=== PATIENT | male | born 1985 | race African-American/Black ===

== ENCOUNTER 2024-01-28 06:29 | Observation (INO) | payer OTHER, SELFPAY ==
[2024-01-28] VITALS (21 sets, daily range): BP systolic 136–180; BP diastolic 71–113; PULSE 75–124; RESP 14–20; TEMP 35.9–37; O2SAT 97–100; BMI 33.5
--- NOTE | 2024-01-28 | ECHO_ITS ---
Patient Info Name: Yamileth Gibson Age: 38 years : 1985 Gender: Male Ht: 72 in Wt: 230 lbs BSA: 2.33 m2 HR: 80 bpm BP: 146 / 83 mmHg Heart Rhythm: Sinus Rhythm Technical Quality: Fair Exam Date: 01/28/2024 10:18 AM Exam Location: Echo Lab Patient Status: Inpatient Admit Date: 01/28/2024 Staff Ordering Physician: Monica Davis MD Crane Operator Cab: Chasity Mays RDCS Attending Provider: Monica Davis MD Exam Type: CA echo dop color flow w con Study Info Indications R07.9 - Chest pain, unspecified Complete two-dimensional, color flow and Doppler transthoracic echocardiogram is performed with contrast to opacify the left ventricle and to improve the deliniation of the left ventricle endocardial borders. Contrast/Agitated Saline Contrast/Ag. Saline: Definity Amount: 2.00 ml Administered By: Chasity Mays RDCS Existing IV Access: Yes IV Access Condition: patent with no signs of infiltration Summary 1. Left ventricular chamber dimension is normal. 2. Left ventricular systolic function is normal, estimated at >70%. 3. There is mildly increased left ventricular wall thickness. 4. The left ventricular diastolic function is grade I diastolic dysfunction. 5. Right ventricular systolic function is normal. 6. There is mild tricuspid valve regurgitation. Left Ventricle Left ventricular chamber dimension is normal. Left ventricular systolic function is normal, estimated at >70%. There is mildly increased left ventricular wall thickness. The left ventricular diastolic function is grade I diastolic dysfunction. Right Ventricle Right ventricular chamber dimension is normal. Right ventricular systolic function is normal. Left Atria Left atrial chamber dimension is normal. Right Atria Right atrial chamber dimension is normal. Atrial Septum Intact interatrial septum visualized by color flow imaging. Aortic Valve The aortic valve is probable trileaflet. There is no aortic valve stenosis. There is no aortic valve regurgitation. There is mild aortic valve calcification. Pulmonic Valve The pulmonic valve is not well visualized. Mitral Valve The mitral valve has normal leaflets. There is trace mitral valve regurgitation. Tricuspid Valve There is mild tricuspid valve regurgitation. Pericardium/Pleural There is no pericardial effusion. Inferior Vena Cava Normal inferior vena cava with >50% collapse upon inspiration consistent with normal right atrial pressure, 3 mmHg. Aorta The aortic root size at the sinus of Valsalva is normal. Left Ventricular Outflow Tract Name Value Normal LVOT 2D LVOT Diameter 1.97 cm LVOT Doppler LVOT Peak Gradient 4 mmHg LVOT Mean Gradient 2 mmHg LVOT VTI 18.55 cm LVOT VTI/AV VTI Ratio 0.75 LVOT Stroke Volume 56.29 ml LVOT CO 5.08 l/min LVOT CI 2.18 L/min/m2 Pulmonic Valve Name Value Normal
--- NOTE | ~2024-01-28 | XR_ITS ---
Portable chest x-ray Comparison: None Clinical History: Chest pain Findings: Lungs are clear, without focal consolidation or pleural effusion. Cardiomediastinal silho uette is unremarkable. Bones and soft tissues are unremarkable. Impression: Normal chest. Reviewed, dictated and finalized at location . Impression: Normal chest.
--- NOTE | 2024-01-28 06:31 | ECG_ITS ---
Test Date: 2024-01-28 06:37:52 Measurements Intervals [place] Rate: 83 P: 3 MS: 157 QRS: 20 QRSD: 84 T: 22 QT: 340 QTc: 401 Interpretive Statements SINUS RHYTHM INCOMPLETE RIGHT BUNDLE BRANCH BLOCK SEPTAL MYOCARDIAL INFARCTION , OF INDETERMINATE AGE [40+ ms Q WAVE IN V1/V2] No previous ECG available for comparison Electronically Signed On 01-28-2024 11:38:34 CDT by Robbin Negro M.D.
[2024-01-28] MEDS: MORPHINE SULFATE (*CRX) 4 MG/ML INJ IV PUSH (06:42)
[2024-01-28] MEDS: NITROGLYCERIN SL 0.4 MG TABLET SUBLINGUAL (06:43)
[2024-01-28] MEDS: ONDANSETRON INJ 4 MG/2 ML VIAL IV PUSH ×2 (06:45→08:37)
[2024-01-28 06:48] LABS: Basophils Percent Auto 0.4 % (0.2-1.2); Eosinophils Absolute Auto 0.2 K/mm3 (0-0.3); Eosinophils Percent Auto 1.5 % (0-4.4); Hematocrit 43.5 % (42.0-52.0); Hemoglobin 13.5 g/dL (14.0-18.0); Immature Granulocyte Absolute 0.02 K/mm3 (0.00-0.031); Immature Granulocyte Percent A 0.2 % (0-0.5); Lymphocytes Absolute Auto 4.92 K/mm3 (0.9-3.2); Lymphocytes Percent Auto 48.4 % (18.3-44.2); Mean Corpuscular Hemoglobin 23.2 pg (26-34); Mean Corpuscular Volume 74.9 fl (80-100); Mean Platelet Volume 9.4 fl (7.4-10.4); Monocytes Percent Auto 9.7 % (2.6-8.5); Neutrophils Absolute Auto 4.1 K/mm3 (1.3-6.7); Neutrophils Percent Auto 39.8 % (45.5-73.1); Platelet Count Result 306 k/mm3 (150-375); Red Blood Count 5.81 M/mm3 (4.6-6.20); Red Cell Distribution Width 16.3 % (11.5-14.5); White Blood Count 10.2 K/mm3 (4.5-10.0)
--- NOTE | 2024-01-28 06:50 | ED.CHESTPAIN ---
HPI - Chest Pain General Chief Complaint: Chest Pain <Mele Griffin MD - Last Filed: 01/28/24 06:56> Stated Complaint: chest pain <Mele Griffin MD - Last Filed: 01/28/24 06:56> Time Seen by Provider: 01/28/24 06:55 <Mele Griffin MD - Last Filed: 01/28/24 06:56> History of Present Illness HPI narrative: This is a 38-year-old male, with history femoral endarterectomy, who presents to the emergency department complaining chest pain. The patient states he was sleeping, when he was woken by severe left-sided pressure-like chest pain. He denies radiation of the pain. This is associated with cold sweats and nausea. He has no other complaints at this time. <Mele Griffin MD - Last Filed: 01/28/24 06:56> Related Data Home Medications: Home Medications Medication Instructions Recorded Confirmed No Home Medications 01/28/24 01/28/24 <Mele Griffin MD - Last Filed: 01/28/24 06:56> Allergies/Adverse Reactions: Allergies Allergy/AdvReac Type Severity Reaction Status Date / Time gabapentin Allergy Unknown Verified 01/28/24 06:32 <Mele Griffin MD - Last Filed: 01/28/24 06:56> Review of Systems Review of Systems: All systems reviewed & are unremarkable except as noted in HPI and below <Mele Griffin MD - Last Filed: 01/28/24 06:56> [facility] Past Medical History Medical History: Medical History (Updated 01/28/24 @ 08:12 by Wing Navarro MD) History of OR (myocardial infarction) Inguinal hernia <Mele Griffin MD - Last Filed: 01/28/24 06:56> Surgical History Surgical History: Surgical History (Updated 01/28/24 @ 07:33 by Wing Navarro MD) History of endarterectomy Right common femoral due to mesh complication History of inguinal hernia repair <Mele Griffin MD - Last Filed: 01/28/24 06:56> Social History Social History: Social History Smoking status: Current every day smoker Alcohol intake: never Substance use: current Substance use type: marijuana <Mele Griffin MD - Last Filed: 01/28/24 06:56> Exam Narrative: GENERAL: Well-developed, well-nourished, diaphoretic, in moderate distress due to pain HEAD: Normocephalic, atraumatic. EYES: PERRLA and EOMI. CHEST: Clear to auscultation. No respiratory distress. No wheezes rales or rhonchi HEART: Regular rate and rhythm. No murmur heard. Normal peripheral pulses. ABDOMEN: Soft, nontender, nondistended, normal active bowel sounds. EXTREMITIES: Normal range of motion. No edema. SKIN: Warm, dry, no rash. NEURO: Alert and oriented x3. No focal deficit. Moving all 4 limbs spontaneously PSYCH: Normal mood and affect. <Mele Griffin MD - Last Filed: 01/28/24 06:56> Course Course Emergency Course: 07:00 - Patient signed out to oncoming ED physician, Dr. Navarro pending labs. I anticipate admission. <Mele Griffin MD - Last Filed: 01/28/24 06:56> 07:00 - Patient signed out to oncoming ED physician, Dr. Navarro pending labs. I anticipate admission. 0814: Patient reporting persistent 9/10 chest pain just left of midline. Reports radiates the neck. There has been no improvement with nitro, morphine, Toradol, GI cocktail. Will plan admission for observation and trending of the troponin. <Wing Navarro MD - Last Filed: 01/28/24 08:30> Vital Signs Vital signs: Vital Signs Temperature 98.4 F 01/28/24 06:32 Pulse Rate 92 01/28/24 06:32 Respiratory Rate 20 01/28/24 06:32 Blood Pressure 180/113 H 01/28/24 06:32 Pulse Oximetry 100 01/28/24 06:32 Oxygen Delivery Room Air 01/28/24 06:32 Temperature 98.6 F 01/28/24 08:09 Pulse Rate 80 01/28/24 08:09 Respiratory Rate 15 01/28/24 08:09 Blood Pressure 146/83 H 01/28/24 08:09 Pulse Oximetry 100 01/28/24 08:09 Oxygen Delivery Room Air 01/28/24 06:47 <Mele Harmon
--- NOTE | 2024-01-28 06:57 | PC.NURSE ---
At 0643 1st nitro given SL; BP 176/114 and CP 10/10. RA 100% and 16 RR. 92 bpm SR At 0648 2nd nitro given: BP 156/109 and CP 8/10. RA 100% and 16 RR. 96 bpm SR. At 0653 BP 144/98 and CP 8/10. RA 100% and 14 RR. [address] SR. Per EDP Dr. Griffin give third nitro. At 0655 third nitro given. At 0700 BP 141/101 and CP 7/10. RA 100% and 14 RR. 97 bmp SR
[2024-01-28 06:58] LABS: Alanine Aminotransferase 58 U/L (6-50); Albumin Level 4.8 g/dL (3.5-5.1); Alkaline Phosphatase 103 U/L (38-126); Anion Gap 9 mmol/L (4-12); Aspartate Amino Transferase 49 U/L (17-59); Bilirubin,Total 0.4 mg/dL (0.2-1.3); Blood Urea Nitrogen 9 mg/dL (9-20); Calcium 9.5 mg/dL (8.4-10.2); Carbon Dioxide 29 mmol/L (22-30); Chloride 99 mmol/L (98-107); Estimated CRCL calculation 135 ml/min; Estimated Glomerular Filt Rate > 60; Glucose 274 mg/dL (65-110); Lipase 187 U/L (23-300); Potassium 3.7 mmol/L (3.4-5.0); Sodium 137 mmol/L (137-145)
[2024-01-28 06:59] LABS: Partial Thromboplastin Time 28.4 Seconds (22.3-36.8); Prothrombin Time 13.1 Seconds (11.1-14.7)
[2024-01-28 07:10] LABS: Troponin I < 0.012 ng/mL (0.000-0.034)
--- NOTE | 2024-01-28 07:15 | PC.NURSE ---
Assumed care of pt, pt is alert on stretcher, discussed POC, pt on tele monitor w/ VSS. at bedside. NAD noted at this time.
[2024-01-28] MEDS: BELLADONNA ALK/PHENOB ELIX 10 ML, MAG HYDROX/ALUMINUM HYD/SIMETH 30 ML, LIDOCAINE HCL 2... PO (07:39)
[2024-01-28] MEDS: KETOROLAC 30 MG/ML VIAL (*BKC) IV PUSH (07:40)
[2024-01-28] MEDS: MORPHINE SULFATE (*CRX) 2 MG/ML INJ 1 MG IV PUSH ×4 (08:37→20:16)
[2024-01-28 08:58] LABS: Cholesterol 270 mg/dL (0-200); HDL Direct 29 mg/dL; Triglycerides 116 mg/dL (<150)
[2024-01-28 09:08] LABS: LDL Cholesterol Direct 208 mg/dL
[2024-01-28 09:15] LABS: Glucose Point of Care 279 mg/dl (65-105)
[2024-01-28 09:20] LABS: Hemoglobin A1C 7.9 % (<5.7)
[2024-01-28] MEDS: INSULIN ASPART (*BKC) 100 UNITS/ML SUB-Q ×6 (09:22→20:14)
[2024-01-28] MEDS: METOPROLOL TARTRATE 12.5 MG TABLET PO ×2 (09:23→20:13)
[2024-01-28] MEDS: ATORVASTATIN 40 MG TABLET PO (09:24)
[2024-01-28 10:19] LABS: Thyroid Stimulating Hormone 0.533 uIU/mL (0.465-4.680)
[2024-01-28] MEDS: PERFLUTREN LIPID MICROSPHERES 1.5 ML VIAL DILUTED TO 10 ML TOTAL VOLUME IV PUSH (10:50)
--- NOTE | 2024-01-28 11:04 | PM.CNCAR ---
Assessment and Plan Assessment and plan (1) NSTEMI (non-ST elevated myocardial infarction): Code(s): I21.4 - Non-ST elevation (NSTEMI) myocardial infarction Status: Acute Assessment and Plan: Initial troponin negative, however, subsequent level positive at 0.080. With substernal chest pain concerning for myocardial ischemia. Therefore, recommended cardiac catheterization. Discussed indication for the procedure with the patient, procedure details, risks vs benefits, alternative management options. Patient states he wants some time to think about his decision whether to undergo any procedures/surgeries (due to past issues he has distrust in the medical system). In the meantime, will treat medically with Heparin drip, ASA, high intensity statin, beta stacie. (2) Diabetes: Code(s): E11.9 - Type 2 diabetes mellitus without complications Status: Acute Assessment and Plan: Hgb A1c is 7.9. Patient denies any prior diagnosis of diabetes, therefore, this is a new diagnosis for the patient. Management as per primary team. (3) Hyperlipidemia: Code(s): E78.5 - Hyperlipidemia, unspecified Status: Acute Assessment and Plan: LDL is 208. Will start high intensity statin. (4) History of endarterectomy: Code(s): Z98.890 - Other specified postprocedural states Status: Acute Assessment and Plan: Continue ASA, starting high intensity statin. (5) Tobacco dependence: Code(s): F17.200 - Nicotine dependence, unspecified, uncomplicated Status: Acute Assessment and Plan: Recommend cessation. (6) Marijuana use: Code(s): F12.90 - Cannabis use, unspecified, uncomplicated Status: Acute Assessment and Plan: Recommend cessation. Plan Recommendations and plan discussed with Hospitalist. History of Present Illness History of Present Illness Consult date/time: 01/28/24 11:04 Requesting physician: Wing Navarro MD Consult reason: chest pain Reason For Visit: chest pain Narrative: This is a 38 year old male who presented to [facility] for chest pain. Patient reports that he was awoken around 4AM with substernal chest pain associated with cold sweats and nausea. Patient reports that he had an MT in 2021 in [place], however, he did not undergo any procedures (i.e. cardiac catheterization) at that time. Patient reports history of femoral endarterectomy due to complications from inguinal hernia surgery. Smokes <0.5 packs of cigarettes daily. Occasional marijuana use. No alcohol use. Was given Morphine and Toradol in the ER with improvement in his chest pain. EKG shows sinus rhythm, incomplete right bundle branch block. No prior EKG available for comparison. Initial troponin negative, however, repeat at level positive at 0.080. 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 History of inguinal hernia repair Social History Social History Smoking status: Current every day smoker Alcohol intake: never Substance use: current Substance use type: marijuana Meds Home Medications and Allergies Home Medications Medication Instructions Recorded Confirmed Type No Home Medications 01/28/24 01/28/24 History Allergies Allergy/AdvReac Type Severity Reaction Status Date / Time gabapentin Allergy Unknown Verified 01/28/24 06:32 Vital Signs Vital Signs - 24 hr 01/28/24 06:32 01/28/24 06:38 01/28/24 06:46 Temperature 36.9 C Pulse Rate 92 93 Respiratory Rate 20 Blood Pressure 180/113
--- NOTE | 2024-01-28 11:06 | IVDEFINITY ---
Prior to administration of IV Definity the patient was educated on the risks and benefits of the imaging enhancing agent including potential adverse side effects. The patient verbalized understanding. Allergies were verified. No exclusion criteria were identified and at least one of the following inclusion criteria were met: 1) physician request, 2) patient technically difficult to image (per the [place] [employer] guidelines of two or more segments not discernable within the apical view), or 3) questionable left ventricular function. ?
[2024-01-28] MEDS: HEPARIN SODIUM 5,000 UNITS/ML VIAL 4000 UNITS IV PUSH ×2 (11:29→18:55)
[2024-01-28] MEDS: HEPARIN SOD/D5W 100 UNITS/ML 25,000 UNITS/250 ML BAG 10 UNITS IV CONT (11:29)
[2024-01-28] MEDS: lisinopriL 2.5 MG TABLET PO (11:30)
--- NOTE | 2024-01-28 11:50 | ADMGEN ---
This patient, Yamileth Gibson, was admitted to IMU Room 232-01. Patient/family oriented to hospital policies and general routines including ID bracelet, bed and alarms, visiting hours, pain management, procedures, bathroom and other care routines, personal items, smoking policy, room service/diet, and visiting hours. Information on how to activate the Rapid Response Team has been discussed. Patient/Family are encouraged to report perceived risks to care and to ask questions if they do not understand what they are told or what they should do.
[2024-01-28 11:59] LABS: Glucose Point of Care 290 mg/dl (65-105)
[2024-01-28 13:05] LABS: Troponin I 0.316 ng/mL (0.000-0.034)
--- NOTE | 2024-01-28 13:30 | PC.NURSE ---
Patient removed playground monitor. Reviewed reason for monitoring system. Patient states he does not need it.
--- NOTE | 2024-01-28 13:30 | PC.NURSE ---
Dr. Davis to bedside. Patient states he will be leaving today.. Request to speak to Dr. Negro.
--- NOTE | 2024-01-28 13:36 | PM.IMHP ---
H&P: HPI History of Present Illness Date/Time: 01/28/24 13:36 Chief Complaint: Chest pain Narrative: 38-year-old male with past medical history of smoking, possible heart attack few years ago, left the hospital without being treated presented to the ER with chest pain. According to patient he started having chest pain around 4:00 a.m. in the morning, which woke him up from sleep, midsternal pressure-like symptoms, radiating to his right arm, with possible diaphoresis. He is a smoker, smokes 1 pack of cigarette per day. Patient denies any fever, chills. Endorses having associated shortness of breath. Denies any leg swelling. Initial troponin was unremarkable. Patient does not take any medications at home. 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 History of inguinal hernia repair Social History Social History Smoking packs per day: 0.5 Smoking cigarettes per day: 10.0 Years smoked: 7 Smoking pack-years: 3.50 Smoking status: Current every day smoker Tobacco type: cigarettes Alcohol intake: former Substance use: current Substance use type: marijuana Last use: 01/27/24 Do You Feel Safe in your Home?: Yes Lack of Transportation: No Lack of Food: Sometimes True Current Housing: I Have Housing Concerned About Future Housing: No Difficulty Paying Gas/Electric Bills: YES Difficulty Paying for Meds: YES Currently Unemployed: YES Education: High School Diploma/GED Difficulty w/ Childcare or Family Care: No Spiritual care concerns: No Meds Home Medications and Allergies Home Medications Medication Instructions Recorded Confirmed Type No Home Medications 01/28/24 01/28/24 History Allergies Allergy/AdvReac Type Severity Reaction Status Date / Time gabapentin Allergy Unknown Verified 01/28/24 06:32 Vital Signs Vital Signs - 24 hr 01/28/24 06:32 01/28/24 06:38 01/28/24 06:46 Temperature 98.4 F Pulse Rate 92 93 Respiratory Rate 20 Blood Pressure 180/113 H Pulse Oximetry 100 98 Oxygen Delivery Room Air Room Air Fraction of Inspired Oxygen 01/28/24 06:47 01/28/24 06:50 01/28/24 07:14 Temperature Pulse Rate 96 79 Respiratory Rate 20 14 Blood Pressure 159/106 H 141/101 H Pulse Oximetry 100 100 100 Oxygen Delivery Room Air Fraction of Inspired Oxygen 01/28/24 07:34 01/28/24 08:09 01/28/24 09:09 Temperature 98.6 F Pulse Rate 85 80 Respiratory Rate 14 15 Blood Pressure 149/85 H 146/83 H Pulse Oximetry 100 100 100 Oxygen Delivery Room Air Fraction of Inspired Oxygen 21 01/28/24 09:23 01/28/24 08:57 01/28/24 11:34 Temperature 97.8 F 98.1 F Pulse Rate 84 84 86 Respiratory Rate 14 20 Blood Pressure 151/108 H 140/86 Pulse Oximetry 100 100 Oxygen Delivery Fraction of Inspired Oxygen 01/28/24 10:00 01/28/24 12:00 01/28/24 12:00 Temperature Pulse Rate 93 102 H Respiratory Rate Blood Pressure Pulse Oximetry 100 Oxygen Delivery Room Air Fraction of Inspired Oxygen H&P: Results Labs Labs: Short CBC 01/28/24 Range/Units 06:43 WBC 10.2 H (4.5-10.0) K/mm3 Hgb 13.5 L (14.0-18.0) g/dL Hct 43.5 (42.0-52.0) % Plt Count 306 (150-375) k/mm3 BMP 01/28/24 06:43 Sodium 137 Potassium 3.7 Chloride 99 Carbon Dioxide 29 BUN 9 Creatinine 0.80 Glucose 274 H Calcium 9.5 Cardiac Enzymes 01/28/24 01/28/24 01/28/24 Range/Units 06:43 09:24 12:31 Troponin I < 0.012 0.080 H* D 0.316 H* D (0.000-0.034) ng/mL L
--- NOTE | 2024-01-28 14:22 | PC.NURSE ---
Dr. Negro at bedside discussing plan of care with patient.
[2024-01-28] MEDS: NITROGLYCERIN 0.6 MG/HR PATCH 1 PATCH TRANSDERM (15:33)
[2024-01-28] MEDS: CLOPIDOGREL BISULFATE 300 MG TABLET 600 MG PO (15:33)
--- NOTE | 2024-01-28 15:42 | PC.NURSE ---
Patient agreed to place telemetry back on and stay for treatment, Heart rate -80, sinus rhythm, when resumed.
[2024-01-28 16:21] LABS: Glucose Point of Care 148 mg/dl (65-105)
[2024-01-28 18:26] LABS: Partial Thromboplastin Time 35.4 Seconds (22.3-36.8)
[2024-01-28 19:52] LABS: Glucose Point of Care 235 mg/dl (65-105)
[2024-01-29] VITALS (7 sets, daily range): BP systolic 113–157; BP diastolic 70–85; PULSE 80–109; RESP 18–20; TEMP 36.4–37.5; O2SAT 95–100
[2024-01-29] MEDS: MORPHINE SULFATE (*CRX) 2 MG/ML INJ 1 MG IV PUSH (00:50)
[2024-01-29 01:22] LABS: Partial Thromboplastin Time 69.4 Seconds (22.3-36.8)
[2024-01-29] MEDS: HEPARIN SODIUM 5,000 UNITS/ML VIAL 3500 UNITS IV PUSH (01:31)
[2024-01-29] MEDS: CALCIUM CARBONATE (TUMS) 500 MG (200 MG ELEMENTAL) PO (05:56)
[2024-01-29] MEDS: HEPARIN SOD/D5W 100 UNITS/ML 25,000 UNITS/250 ML BAG 16 UNITS IV CONT (07:15)
[2024-01-29 07:31] LABS: Basophils Percent Auto 0.3 % (0.2-1.2); Eosinophils Percent Auto 0.3 % (0-4.4); Hematocrit 38.5 % (42.0-52.0); Hemoglobin 12.3 g/dL (14.0-18.0); Immature Granulocyte Absolute 0.01 K/mm3 (0.00-0.031); Immature Granulocyte Percent A 0.1 % (0-0.5); Lymphocytes Absolute Auto 4.07 K/mm3 (0.9-3.2); Mean Corpuscular HGB Conc 31.9 g/dl (32-36); Mean Corpuscular Hemoglobin 23.3 pg (26-34); Mean Corpuscular Volume 73.1 fl (80-100); Mean Platelet Volume 9.8 fl (7.4-10.4); Monocytes Absolute Auto 0.9 K/mm3 (0.1-0.6); Neutrophils Absolute Auto 5.7 K/mm3 (1.3-6.7); Neutrophils Percent Auto 53.3 % (45.5-73.1); Platelet Count Result 286 k/mm3 (150-375); Red Blood Count 5.27 M/mm3 (4.6-6.20); Red Cell Distribution Width 15.2 % (11.5-14.5); White Blood Count 10.7 K/mm3 (4.5-10.0)
[2024-01-29 07:47] LABS: Anion Gap 6 mmol/L (4-12); Blood Urea Nitrogen 7 mg/dL (9-20); Carbon Dioxide 27 mmol/L (22-30); Chloride 102 mmol/L (98-107); Estimated CRCL calculation 139 ml/min; Estimated Glomerular Filt Rate > 60; Glucose 178 mg/dL (65-110); Potassium 3.7 mmol/L (3.4-5.0); Sodium 135 mmol/L (137-145)
[2024-01-29 07:51] LABS: Glucose Point of Care 192 mg/dl (65-105)
[2024-01-29] MEDS: CLOPIDOGREL BISULFATE 75 MG TABLET PO (08:07)
[2024-01-29] MEDS: NITROGLYCERIN 0.6 MG/HR PATCH 1 PATCH TRANSDERM (08:08)
[2024-01-29] MEDS: ASPIRIN 81 MG CHEWABLE TABLET PO (08:08)
[2024-01-29] MEDS: lisinopriL 2.5 MG TABLET PO (08:08)
[2024-01-29] MEDS: METOPROLOL TARTRATE 12.5 MG TABLET PO (08:08)
[2024-01-29] MEDS: ATORVASTATIN 40 MG TABLET PO (08:08)
[2024-01-29] MEDS: INSULIN ASPART (*BKC) 100 UNITS/ML SUB-Q (08:09)
[2024-01-29 08:33] LABS: Partial Thromboplastin Time 101.6 Seconds (22.3-36.8)
--- NOTE | 2024-01-29 10:40 | PM.DS ---
DS: Admitting Diagnosis Discharge Date 01/29/24 Admitting Diagnosis Chest pain, likely NSTEMI DS: Discharge Diagnosis Discharge Diagnosis (1) Diabetes: Code(s): E11.9 - Type 2 diabetes mellitus without complications Status: Acute (2) NSTEMI (non-ST elevated myocardial infarction): Code(s): I21.4 - Non-ST elevation (NSTEMI) myocardial infarction Status: Acute (3) Hyperlipidemia: Code(s): E78.5 - Hyperlipidemia, unspecified Status: Acute DS: Summary Hospital Course Reason for hospitalization: Chest pain Hospital Course: 38-year-old male with past medical history of smoking presented with chest pain. Was found to have elevated troponin, slowly rising. Was started on heparin drip, aspirin, statin therapy, Cardiology was consulted. Patient was recommended for cardiac catheterization which he denied. Was started on aspirin, Plavix, statin, beta-stacie along with Imdur. Patient was also diagnosed with diabetes, was treated with insulin therapy while in the hospital, was discharged on oral metformin therapy. Smoking cessation counseling was done. Patient was very noncompliant during his hospital stay, refusing medications most of the time. Advised to have outpatient follow-up with Cardiology in 2 weeks. Was also started on low-dose lisinopril upon discharge. Status at Discharge Functional status at discharge: independent ambulation Time Spent with Patient Time attestation: Total time spent providing and/or coordinating discharge services: Time spent: Greater than 30 minutes Exam Const: General: comfortable and no acute distress HENMT: Mouth: Yes moist mucous membranes Eyes: General: appearance normal, both eyes and all related structures Sclera: sclerae normal Resp: Effort & Inspection: normal respiratory effort Cardio: Rate: regular rate Rhythm: regular rhythm Skin: General skin exam: normal color Neuro: Speech: normal speech Psych: Mental Status: mental status grossly normal Affect: normal affect DS: Data Data Completed and Pending Labs on day of discharge: Labs from last 24 hours 01/29/24 01/29/24 01/29/24 07:26 07:20 01:05 WBC 10.7 H RBC 5.27 Hgb 12.3 L Hct 38.5 L MCV 73.1 L MCH 23.3 L MCHC 31.9 L RDW 15.2 H Plt Count 286 MPV 9.8 Immature Gran % (Auto) 0.1 Neut % (Auto) 53.3 Lymph % (Auto) 38.0 Martin % (Auto) 8.0 Eos % (Auto) 0.3 Baso % (Auto) 0.3 Lymph # (Auto) 4.07 H Martin # (Auto) 0.9 H Eos # (Auto) 0.0 Baso # (Auto) 0.0 Abs Immat Gran (auto) 0.01 Absolute Neuts (auto) 5.7 Absolute Nucleated RBC 0.000 Nucleated RBC % 0.0 APTT 101.6 H 69.4 H Sodium 135 L Potassium 3.7 Chloride 102 Carbon Dioxide 27 Anion Gap 6 BUN 7 L Creatinine 0.80 Estim Creat Clear Calc 139 Estimated GFR > 60 Glucose 178 H POC Capillary Glucose 192 H Calcium 9.0 Troponin I 01/28/24 01/28/24 01/28/24 19:48 18:08 16:01 WBC RBC Hgb Hct MCV MCH MCHC RDW Plt Count MPV Immature Gran % (Auto) Neut % (Auto) Lymph % (Auto) Martin % (Auto) Eos % (Auto) Baso % (Auto) Lymph # (Auto) Martin # (Auto) Eos # (Auto) Baso # (Auto) Abs Immat Gran (auto) Absolute Neuts (auto) Absolute Nucleated RBC Nucleated RBC % APTT 35.4 Sodium Potassium Chloride Carbon Dioxide Anion Gap BUN Creatinine Estim Creat Clear Calc Estimated GFR Glucose POC Capillary Glucose 235 H 148 H Calcium Troponin I 01/28/24 01/28/24 12:31 11:33 WBC RBC Hgb Hct MCV MCH MCHC RDW Plt Count MPV Immature Gran % (Auto) Neut % (Auto) Lymph % (Auto) Martin % (Auto) Eos % (Auto) Baso % (Auto) Lymph # (Auto) Martin # (Auto) Eos # (Auto) Baso # (Auto) Abs Immat Gran (auto) Absolute Neuts (auto) Absolute Nucleated RBC
--- NOTE | 2024-01-29 10:47 | PM.PNCARD ---
Progress Note: A&P Assessment and Plan (1) NSTEMI (non-ST elevated myocardial infarction): Code(s): I21.4 - Non-ST elevation (NSTEMI) myocardial infarction Status: Acute Assessment and Plan: Recommended cardiac catheterization given NSTEMI. Had an extensive discussion with the patient regarding indication for the procedure with the patient, procedure details, risks vs benefits, alternative management options. Patient has decided that he does NOT want any coronary stents placed at all or other interventions, and prefers to do medical therapy over undergoing cardiac catheterization. Risks vs benefits of both cardiac catheterization vs medical therapy was discussed with the patient, and patient expressed understanding of the risks and benefits of both options. Therefore, will proceed with medical therapy as per patient's wishes. Treated with Heparin drip. Continue ASA 81mg once daily. Started on Plavix, continue with Plavix 75mg once daily. Continue high intensity statin. Continue beta stacie. Can stop NTG patch and start Imdur 60mg once daily. (2) Diabetes: Code(s): E11.9 - Type 2 diabetes mellitus without complications Status: Acute Assessment and Plan: Hgb A1c is 7.9. Patient denies any prior diagnosis of diabetes, therefore, this is a new diagnosis for the patient. Management as per primary team. (3) Hyperlipidemia: Code(s): E78.5 - Hyperlipidemia, unspecified Status: Acute Assessment and Plan: LDL is 208. Continue high intensity statin. (4) History of endarterectomy: Code(s): Z98.890 - Other specified postprocedural states Status: Acute Assessment and Plan: Continue ASA, high intensity statin (5) Tobacco dependence: Code(s): F17.200 - Nicotine dependence, unspecified, uncomplicated Status: Acute Assessment and Plan: Recommend cessation. (6) Marijuana use: Code(s): F12.90 - Cannabis use, unspecified, uncomplicated Status: Acute Assessment and Plan: Recommend cessation. Plan Okay for discharge home from my standpoint. Recommendations and plan discussed with Hospitalist. Will arrange for outpatient follow up in our office. Subjective Date/time seen: 01/29/24 10:47 Interval history: Reason for visit: NSTEMI HPI: This is a 38 year old male who presented to [facility] for chest pain. Patient reports that he was awoken around 4AM with substernal chest pain associated with cold sweats and nausea. Patient reports that he had an [place] in 2021 in [place], however, he did not undergo any procedures (i.e. cardiac catheterization) at that time. Patient reports history of femoral endarterectomy due to complications from inguinal hernia surgery. Smokes <0.5 packs of cigarettes daily. Occasional marijuana use. No alcohol use. Was given Morphine and Toradol in the ER with improvement in his chest pain. EKG shows sinus rhythm, incomplete right bundle branch block. No prior EKG available for comparison. Initial troponin negative, however, repeat at level positive at 0.080. Date of service 01/28: His chest pain resolved around 10PM last night, reports feeling well this morning. He wants to go home. Review of Systems Review of Systems: All systems reviewed & are unremarkable except as noted in HPI and below (HPI) Exam Const: General: comfortable and no acute distress HENMT: Mouth: Yes moist mucous membranes Eyes: General: appearance normal, both eyes and all related structures Sclera: sclerae normal Resp: Effort & Inspection: normal respiratory effort Cardio: Rate: regular rate Rhythm: regular rhythm Skin: General skin exam: normal color Neuro: Speech: normal speech Psych: Mental Status: mental status grossly normal Affect: normal affect Objective Data Vital Signs Vital Signs: Vital Signs - 24 hr 01/28/24 11:34 01/28/24 12:00 01/28/24 12:00 Temperature 36.7 C Pulse Rate 86 102 H Respi
== END 2024-01-29 11:04 | disposition home or self-care (01) ==
LOC: ANHED 07:49 → ANHIMU 12:15
PROVIDERS: Internal Medicine; Admitting Provider Internal Medicine; Emergency Provider Preventive Medicine Aerospace Medicine; Visit Provider Internal Medicine
DX: I21.4 Non-ST elevation (NSTEMI) myocardial infarction (principal); E11.9 Type 2 diabetes mellitus without complications; I25.2 Old myocardial infarction; F12.90 Cannabis use, unspecified, uncomplicated; E78.5 Hyperlipidemia, unspecified; F17.210 Nicotine dependence, cigarettes, uncomplicated; Z98.890 Other specified postprocedural states
CPT/HCPCS: 36415; 71045; 80048; 80053; 80061; 82948; 83036; 83690; 84443; 84484; 85025; 85610; 85730; 93005; 96365; 96366; 96375; 96376; 99285; A9270; C8929; G0378; G0379; J1644; J1815; J1885; J2270; J2405; Q9957